=== PATIENT | female | born 1970 ===

== ENCOUNTER 2019-07-30 05:35 | Inpatient (IN) | payer MEDICARE, BC ==
[~2019-07-30 05:35] MED LIST: Tranexamic Acid 1,000 MG in NS 0.9% 50 ML* (outpatient use) IV SCH
--- OUTSIDE RECORDS SUMMARY | 2019-07-30 05:40 | XMS REPORT | Continuity of Care Document ---
:1970 External Reference #:[id number] Author Name Cassuis Dumont M.D. 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 thigh twice a day as needed Cyclobenzaprine HCL take 1 tablet up 90tabs M54.31 Cassius Dumont, 2018 10mg to three times a M.D. Tablets day as needed Synthroid 1 by mouth every Unknown 200mcg Tablets day Synthroid 2 by mouth every Unknown 25mcg Tablets day Losartan Potassium 1 by mouth every Unknown 100mg day Tablets Nexium 24HR 2 by mouth every Unknown 20mg Tablets day otc DR Burks 1 by mouth every Unknown 10mg Tablets day Eva-D 24 Hour as needed Unknown Allergy & Congestion 180-240mg Tablets ER 24HR Ambien 1/2 to 1 tab at Unknown 10mg Tablets bedtime as needed Ventolin HFA 1 to 2 inhalations Unknown 108(90Base) every 4 hours as mcg/Act Aerosol needed Immunizations Description No Information Available Vital Signs Date Vital Result Comment 07/10/2019 9:13am Height 66 inches 5'6" Weight 220.00 lb Heart Rate 91 /min BP Systolic Sitting 132 mmHg BP Diastolic Sitting 94 mmHg Body Temperature 97.2 F BMI (Body Mass Index) 35.5 kg/m2 05/18/2019 11:02am Height 66 inches 5'6" Weight 243.12 lb Heart Rate 92 /min BP Systolic Sitting 146 mmHg BP Diastolic Sitting 88 mmHg Body Temperature 97.2 F BMI (Body Mass Index) 39.2 kg/m2 Results Description No Information Available Procedures Description No Information Available Medical Devices Description No Information Available Encounters Type Date Location Provider Dx Diagnosis Office Visit 05/18/2019 [facility] Robert Luke76.31 Iliotibial band 11:00a at [facility] syndrome, right leg M16.51 Unilateral post-traumatic osteoarthritis, right hip Office Visit 04/06/2019 10:30a [facility] Cassius Dumont M25.551 Pain in at [facility] right hip M76.31 Iliotibial band syndrome, right leg M54.31 Sciatica, right side Assessments Date Code Description Provider 07/10/2019 M16.51 Unilateral post-traumatic osteoarthritis, Cassius Dumont M.D. right hip 05/18/2019 M76.31 Iliotibial band syndrome, right leg Cassius Dumont M.D. 05/18/2019 M16.51 Unilateral post-traumatic osteoarthritis, Cassius Dumont M.D. right hip 04/06/2019 M25.551 Pain in right hip Cassius Dumont M.D. 04/06/2019 M76.31 Iliotibial band syndrome, right leg Cassius Dumont M.D. 04/06/2019 M54.31 Sciatica, right side Cassius Dumont M.D. Plan of Treatment 07/10/2019 - Cassius Dumont M.D.M16.51 Unilateral post-traumatic osteoarthritis , right hipFollow up:4 weeks after surgery Functional Status Description No Information Available Mental Status Description No Information Available Referrals Refer to Reason for Referral Status Appt Date Eileen Sandoval MD h/o neck and back pain, had been treated Created in [facility] with epidural injections as MRIs there showed foraminal stenosis of the lumbar spine. Last injections were cervical in December and again become more symptomatic with decreasing quality of life [address] [facility], [place] [address] [phone]
[2019-07-30] MEDS ORDERED: Lactated Ringers 1000 ML Bag* 1,000 ML IV SCH (06:00)
[2019-07-30] MEDS ORDERED: ceFAZolin 2 GM PREMIX in ORs 2 GM/50 ML BAG ONE (06:31)
[2019-07-30] MEDS: Buffered Lidocaine 1% SYRIN* 1 ML/SYRINGE INTRADERM ONE ×2 (06:48→07:08)
[2019-07-30] MEDS ORDERED: Midazolam* 1 MG/ML 2 ML VIAL (2 MG) ONE (07:12)
[2019-07-30] MEDS ORDERED: Lidocaine 2% PF * 5 ML VIAL ONE ×2 (07:12→10:52)
[2019-07-30] MEDS ORDERED: Propofol* 10 MG/ML 20 ML BTL ONE (07:12)
[2019-07-30] MEDS ORDERED: Rocuronium* 10 MG/ML VIAL ONE ×2 (07:13→12:43)
[2019-07-30] MEDS ORDERED: Dexmedetomidine* 200 MCG/2 ML 2 ML VIAL ONE (07:13)
[2019-07-30] MEDS ORDERED: ROPIVACAINE 5 MG/ML 30 ML BTL (0.5%) ONE (07:13)
[2019-07-30] MEDS ORDERED: fentaNYL* 50 MCG/ML 2 ML VIAL (100 MCG VIAL) ONE (07:45)
[2019-07-30] MEDS ORDERED: Dexamethasone IV* 4 MG/ML 1 ML (4 MG) ONE (07:55)
[2019-07-30] MEDS ORDERED: DiMENhydriNATE IV* 50 MG/ML VIAL IV PUSH PRN (08:56)
[2019-07-30] MEDS ORDERED: Naloxone* 0.4 MG/ML 1 ML VIAL IV PRN (08:56)
[2019-07-30] MEDS ORDERED: Sugammadex * 200 MG/2 ML VIAL IV PUSH ONE (10:42)
[2019-07-30] MEDS ORDERED: Phenylephrine 40 MCG/ML SYRINGE ONE (10:49)
[2019-07-30] MEDS ORDERED: HYDROmorphone INJ1* 1 MG/ML SYRINGE ONE ×2 (11:18→11:51)
[2019-07-30] MEDS ORDERED: Magnesium Hydroxide LIQ* 30 ML UDC PO PRN (11:39)
[2019-07-30] MEDS ORDERED: diPHENhydraMINE IV* 50 MG/ML 1 ml VIAL (BENADRYL) IV PRN (11:39)
[2019-07-30] MEDS ORDERED: Ondansetron INJ* 2 MG/ML VIAL IV PRN (11:39)
[2019-07-30] MEDS ORDERED: Ondansetron ODT TAB* 4 MG PO PRN (11:39)
[2019-07-30] MEDS ORDERED: traMADol TAB* 50 MG PO PRN (11:39)
[2019-07-30] MEDS ORDERED: diPHENhydraMINE PO* 25 MG PO PRN (11:39)
[2019-07-30] MEDS ORDERED: Albuterol 2.5 MG/3 ML NEB.SOL* (0.083%) INH PRN (11:43)
[2019-07-30] MEDS ORDERED: Albuterol HFA INHALER* 8 gm MDI INH PRN (11:43)
[2019-07-30] MEDS: HYDROmorphone INJ1* 1 MG/ML SYRINGE IV PRN ×3 (11:52→12:15)
[2019-07-30] MEDS ORDERED: oxyCODONE TAB* 5 MG TAB ONE ×2 (12:21→12:48)
[2019-07-30] MEDS: oxyCODONE TAB* 5 MG TAB PO PRN ×4 (12:22→21:04)
[2019-07-30] MEDS ORDERED: Ketorolac INJ* 30 MG/ML 1 ML VIAL ONE (12:43)
[2019-07-30] MEDS ORDERED: Metoclopramide IV* 5 MG/ML 2 ML VIAL ONE (12:43)
[2019-07-30] MEDS ORDERED: Acetaminophen IV 1GM/100ML * 100 ML ONE (12:43)
[2019-07-30] MEDS ORDERED: Ondansetron INJ* 2 MG/ML VIAL ONE (12:43)
[2019-07-30] MEDS: Cyclobenzaprine TAB* 10 MG PO PRN ×2 (13:13→21:04)
--- NOTE | 2019-07-30 14:09 | CONS ---
CC: Dr. Arauz; Dr. Dumont * CONSULTATION REPORT: DATE OF CONSULT: 07/30/19 PRIMARY CARE PROVIDER: Dr. Arauz. REASON FOR CONSULT: Hypertension and management of the patient's postoperative right hip replacement. CHIEF COMPLAINT: Right hip pain. HISTORY OF PRESENT ILLNESS: Carlie Vanegas is a 49-year-old female with a history of hypertension and thyroid cancer, status post thyroidectomy, status post elective right hip surgery today by Dr. Dumont. Postoperatively, the patient is seen in the postoperative unit. She is complaining of severe right hip pain. She is right now receiving intravenous Dilaudid for it. Otherwise, she has no complaints. The patient stated that she has a history of obstructive sleep apnea and she had been using CPAP at home. Medicine consult was requested for the reason of co-management of the patient's hypertension postoperatively. PAST MEDICAL HISTORY: 1. History of thyroid cancer, status post thyroidectomy and subsequent hypothyroidism. 2. Hypertension. 3. History of obstructive sleep apnea, on CPAP. PAST SURGICAL HISTORY: 1. Status post appendectomy. 2. History of . MEDICATIONS AT HOME: Include: 1. Ambien 10 mg at bedtime. 2. Singulair 10 mg daily. 3. Rhinocort 1 inhalation b.i.d. p.r.n. 4. Pulmicort inhaler 2 puffs inhalation b.i.d. 5. Losartan 100 mg daily. 6. Levothyroxine 250 mcg daily. 7. Eva 180 mg b.i.d. 8. Nexium 40 mg daily. 9. Albuterol inhaler on a p.r.n. basis. 10. Albuterol nebulizer on a p.r.n. basis. ALLERGIES: No known drug allergies. FAMILY HISTORY: Father is healthy. Mother with a history of renal failure. SOCIAL HISTORY: The patient quit smoking over 30 years ago. The patient denies any alcohol or drug use. She lives with her who is her surrogate. REVIEW OF SYSTEMS: Please see history of present illness. All the remaining 12 systems were reviewed with the patient and were otherwise negative. PHYSICAL EXAM: Blood pressure of 125/73, heart rate of 70 and regular, respiratory rate 13, oxygen saturation 100% on 2 L of oxygen via nasal cannula, temperature of 98.1. General: The patient is a very pleasant 49-year-old obese female, who is in no acute distress. The patient is alert and oriented x3. HEENT: Head: Atraumatic, normocephalic. Eyes: Pupils are equal, reactive to light and accommodation. Oropharynx is clear. Mucosa moist. Neck : Supple. No JVD. No bruits bilaterally. Cardiovascular: Regular rate and rhythm. No murmur. Respiratory: Clear to auscultation bilaterally. Abdomen: Soft, nontender. Bowel sounds are present in all 4 quadrants. Extremities: There is no edema. Pulses are +2 bilaterally. No clubbing or cyanosis. The right hip incision is covered with postoperative dressings that were not removed for evaluation. LABORATORY DATA: Current laboratory data: None. ASSESSMENT AND PLAN: 1. In regards to postoperative management of the patient's right total hip replacement that is as per Dr. Dumont. The patient was already started on apixaban twice a day for DVT prophylaxis for postoperative hip. 2. For the patient's hypothyroidism, her levothyroxine is going to be continued at home dose. 3. For the patient's hypertension, her losartan is going to be continued. 4. For DVT prophylaxis, Eliquis as above. 5. The patient's code status is full. Her surrogate is her . TIME SPENT: Approximately 55 minutes was spent on consultation of this patient , more than half that time was spent [id number] with the patient during the interview and physical exam. Thank you very much for allowing our service to see the patient in consultation. We will see the patient on a p.r.n. basis and sign off for now. [id number]/[facility] #: [id number] RUBIN
[2019-07-30] MEDS: D5W 1/2 NS 1000 ML BAG* 1,000 ML IV SCH (14:30)
[2019-07-30] MEDS: ceFAZolin 1 GM ADVAN(*) 1 GM in NS 0.9% 50 ML* 50 ML IVPB SCH (15:42)
[2019-07-30] MEDS: Morphine INJ* 2 MG/ML 1 ML SYRINGE (TWO MG - NEW SYRINGE VERSION) IV PRN ×2 (16:30→21:14)
[2019-07-30] MEDS ORDERED: Mometasone 220 MCG MDI INH SCH ×2 (18:00→21:00)
[2019-07-30] MEDS ORDERED: Zolpidem TAB* 10 MG PO SCH (21:00)
[2019-07-30] MEDS ORDERED: Sulfamethox/Trimethoprim DS 800/160* TAB PO SCH (21:00)
[2019-07-30] MEDS: Magnesium Hydroxide LIQ* 30 ML UDC PO SCH (21:03)
[2019-07-30] MEDS: Docusate CAP* 100 MG PO SCH (21:03)
--- NOTE | 2019-07-30 21:28 | OP ---
DATE OF OPERATION: 07/30/19 - ROOM #341 DATE OF : 68 ATTENDING SURGEON: Cassius Dumont MD LYE PEEL OPERATOR: Jamie Lazo RPA ANESTHESIA: General and regional. PRE-OP DIAGNOSIS: Osteoarthritis, right hip. POST-OP DIAGNOSES: 1. Osteoarthritis, right hip. 2. Right proximal femur fracture. OPERATIVE PROCEDURES: 1. Right total hip arthroplasty. 2. Open reduction internal fixation, proximal femur. INDICATIONS: Ms. Vanegas is a 49-year-old female who has has more and more troubles with right hip pain. She had been diagnosed years ago with a labral tear and has had continued troubles with hip pain. It always had been more bearable, but more recently has gotten worse and I discussed with her different treatment options, specifically that a hip arthroscopy was something that would be an option. She having told down in the city that she would eventually need a hip replacement and she reports she would rather have just the hip replacement done and move on rather than have one surgery and then in several years have a second surgery. Risks of surgery such as infection, scar formation , stiffness, DVT, pulmonary embolism, leg length discrepancy, and instability were some of the risks discussed. She had been declared medically optimized and wished to proceed. ESTIMATED BLOOD LOSS: 75 cc. COMPLICATIONS: Proximal femur fracture. HARDWARE: Carlo ML taper #4 standard with reduced neck, plus 0, 32 mm ceramic head, 48 mm Continuum cup with elevated liner, 1 proximal cable. DESCRIPTION OF PROCEDURE: The patient had a block placed in the holding area and was brought back to the OR. General endotracheal anesthesia was established. Weller catheter was placed. She was then rolled into left lateral decubitus position and an axillary roll was placed and the pegs were all padded using the gel pads. Right hip area was prepped and then draped. An incision was made centered at about the greater trochanter initially, extended proximally and distally for about 10 cm. Proximally, I needed to extend her, because she was quite deep because of her subcutaneous fat. Incision was carried down through the skin and subcutaneous fat. Small bleeders encountered were ligated using electrocautery. Eventually, fascia was exposed and sharply incised. Trochanteric fascia was taken down using electrocautery and short external rotators were nicely exposed. Using electrocautery, these were taken down. Hohmann retractor was placed under the gluteus medius and gluteus minimus and nice exposure was obtained. T-capsulotomy was made and the hip was easily dislocated. Cutting guide was placed and I had to make sure that we had good sized neck cut as I templated her to a 7.5 with a 56-mm cup. Neck was marked and reciprocating saw was used to resect the femoral neck. Anterior C- retractor and inferior Hohmann were placed and acetabulum was exposed. Labrum was taken down sharply using a Florencio blade. From my preoperative templating, I did not went to medialize because of her anatomy, rather I wanted to come straight in and using the alignment jeanette and guide, she was progressively reamed. Her head, however, was much smaller than what I had templated for, and this was because of her subcutaneous fat adding much more magnification. She was reamed starting with a 44 and then progressively enlarged and at a 47, I had a good [id number] fit with bleeding bone. A 48-mm cup was called for and impacted into place. She had quite a solid bone and it took a quite a bit to fully impact and seat the cup. The 48 only had two screw holes and one screw hole was pointing nicely towards the posterior superior direction; but with the other one, it was just a little too anterior, so that screw hole was not used. Spectacular bite was obtained with the one screw. Trial liner was placed and attention was turned to the proximal femur. Femur was opened using a box osteotome and even the canal finder was difficult to pass. Beginning with a 4 broach, she was broached, but I could just seat her perfectly with it and this was smaller than the size 7.5/9 that I had templated her for. Fuad was then fully seated and initially I had templated to use the extended offset with a reduced neck, but considering everything was smaller, I went with the standard offset with the reduced neck. With the 0 head , she seemed just a little bit long and that was changed for the -3.5. She sat well with the minus head. She had good stability, limited more by her body habitus. The trial instrumentation was removed and it was copiously pulse lavaged. Elevated liner was impacted into place. The trial stem was replaced and then an x-ray was gotten. I have been concerned just because she was so much smaller than what I had templated for, to make sure that I had good fill proximally. It could be seen that I could further seat the stem, but I would not be able to to upsize to a 5 even with trying to seat the stem further down. [place] was removed and approximately 3 mm were taken from the neck, so that I could use a 0 head. The 4 was again broached, but just a little bit further down. She was trialed and had good stability. Trial instrumentation was removed and stem was then impacted into place. It did not fully seat, but unfortunately I had not seen that the leg was not up at 90 degrees as it should always be and instead it was sitting at 45 degrees, so as I was impacting in, I had kept my 20 degrees rotation thinking the leg was 90 degrees and so the stem was partially impacted in retroversion. Once I saw that the leg was not straight up, I brought the leg up and it could be seen how the angle of the stem was not in a good position. Extractors were called for and universal extractor was used to back the stem out. She was again broached to make sure I had the correct broaching and that seemed to sit quite nicely. The 4 stem had a little bit of abrasion on the head, so instead of a metal head, the ceramic head was called for, so that there would be less fretting. There was no other size 4 stem available. Stem was then impacted into place, but when she was fully seated, a crack started to develop from the back side of the cortex at the interface between the cortex and the greater trochanter. Cable system was called for and a cable was passed, clamping everything together. This was tightened to 100 pounds of pressure and the screw was tightened. Head was then impacted into place and hip was copiously pulse lavaged. Posterior capsule and short external rotators were repaired together to the posterior aspect of the greater trochanter. Fascia was repaired using interrupted #1 Vicryl sutures. Subcutaneous tissues were approximated in 3 layers and the skin was closed using nylon as per her request. Sterile dressing and abduction pillow were applied in the OR. The patient was then extubated in the OR and was stable on transfer to the recovery room. [id number]/[facility] #: [id number] [facility] HOSPITALBrenda
[2019-07-30] MEDS: Acetaminophen TAB* 325 MG PO SCH (22:49)
[2019-07-31] MEDS: ceFAZolin 1 GM ADVAN(*) 1 GM in NS 0.9% 50 ML* 50 ML IVPB SCH ×2 (00:03→09:10)
[2019-07-31] MEDS: D5W 1/2 NS 1000 ML BAG* 1,000 ML IV SCH (00:26)
[2019-07-31 05:19] LABS: Hematocrit 30 % (35-47); Mean Platelet Volume 9.1 fL (7.4-10.4); Platelet Count 239 10^3/uL (150-450)
[2019-07-31 05:36] LABS: BUN/Creatinine Ratio 16.9 (8-20); Calcium 8.3 mg/dL (8.6-10.3); EGFR African American 105.4 (>60); EGFR Non-African American 87.1 (>60); Potassium 4.2 mmol/L (3.5-5.0)
[2019-07-31] MEDS: oxyCODONE TAB* 5 MG TAB PO PRN ×3 (05:39→14:51)
[2019-07-31] MEDS: Acetaminophen TAB* 325 MG PO SCH ×2 (05:40→14:50)
[2019-07-31] MEDS ORDERED: Levothyroxine TAB* 125 MCG TAB PO SCH (06:00)
[2019-07-31] MEDS ORDERED: Vitamin THERAPEUTIC TAB PO SCH (09:00)
[2019-07-31] MEDS ORDERED: Cetirizine* 10 MG TAB PO SCH (09:00)
[2019-07-31] MEDS ORDERED: Losartan TAB* 25 MG PO SCH (09:00)
[2019-07-31] MEDS ORDERED: Apixaban* 2.5 MG TAB PO SCH (09:00)
[2019-07-31] MEDS ORDERED: Fluticasone NASAL SPRAY 50MCG* 16 gm SPRAY BTL BOTH NARES PRN (09:00)
[2019-07-31] MEDS ORDERED: Montelukast Sodium TAB* 10 MG PO SCH (09:00)
[2019-07-31] MEDS ORDERED: Pantoprazole TAB * 40 MG TAB PO SCH (09:00)
[2019-07-31] MEDS: Docusate CAP* 100 MG PO SCH (09:11)
[2019-07-31] MEDS: Magnesium Hydroxide LIQ* 30 ML UDC PO SCH (09:14)
--- NOTE | 2019-07-31 11:11 | PN ---
Progress Note - Progress Note Date of Service: 07/31/19 SOAP: Subjective: []Pt seen and examined at bedside. She feels well and desires DC home. Denies CP , SOB, dizziness, nausea. Hip pain is well controlled. Objective: []Gen: NAD RLE: Right hip dressing changed, incision is CDI. Thigh soft, DF/PF intact, DP2+ , sensation intact to light touch distally, still with some decreased sensation of thigh and lower leg Calves supple and nontender without erythema, edema or palpable cords Assessment: []POD 1 sp RTH proximal femur fracture intraop, ORIF w 1 cable Plan: []TTWB RLE posterior hip precautions eliquis 2.5 mg po bid x 30 days post op Vital Signs Temp 98.6 F 07/31/19 07:52 Pulse 91 07/31/19 07:52 Resp 18 07/31/19 09:13 BP 105/52 07/31/19 07:52 Pulse Ox 100 07/31/19 08:00 Intake & Output 07/30/19 07/31/19 07/31/19 18:59 06:59 18:59 Intake Total 1395 Output Total 200 2100 1000 Balance -200 -705 -1000 Intake: IV Fluids 980 D5W 1/2 NS 980 IVPB 55 ABX - CEFAZOLIN 55 Oral 360 Output: Urine 1000 Weller 200 2100 Other: # Bowel Movements 0 Laboratory Last Values Hgb 10.0 g/dL (12.0-16.0) L 07/31/19 04:49 Hct 30 % (35-47) L 07/31/19 04:49 Plt Count 239 10^3/uL (150-450) 07/31/19 04:49 MPV 9.1 fL (7.4-10.4) 07/31/19 04:49 Sodium 135 mmol/L (135-145) 07/31/19 04:49 Potassium 4.2 mmol/L (3.5-5.0) 07/31/19 04:49 Chloride 102 mmol/L (101-111) 07/31/19 04:49 Carbon Dioxide 27 mmol/L (22-32) 07/31/19 04:49 Anion Gap 6 mmol/L (2-11) 07/31/19 04:49 BUN 12 mg/dL (6-24) 07/31/19 04:49 Creatinine 0.71 mg/dL (0.51-0.95) 07/31/19 04:49 Est GFR ( Amer) 105.4 (>60) 07/31/19 04:49 Est GFR (Non-Af Amer) 87.1 (>60) 07/31/19 04:49 BUN/Creatinine Ratio 16.9 (8-20) 07/31/19 04:49 Glucose 147 mg/dL (70-100) H 07/31/19 04:49 Calcium 8.3 mg/dL (8.6-10.3) L 07/31/19 04:49
[2019-07-31 11:22] VITALS: BP 131/63
--- NOTE | 2019-07-31 13:39 | DS ---
Orthopedic Discharge Summary - Discharge Summary Date of Admission:07/30/19 Date of Discharge: 07/31/19 Date of Surgery: 07/30/19 Attending Orthopedic Provider: Dr Dumont Pre-operative Diagnosis: Right hip osteoarthritis Operative Procedure: right total hip replacement, ORIF right proximal femur fracture Disposition of Patient: home with home PT but no nursing services Condition of Patient: stable History: THANH BARONE is a 49 year old F with years of increasingly severe right hip pain. Patient has failed conservative management and has elected to undergo a right total hip replacement Hospital Course: THANH was admitted to [facility] on 07/30/19. Patient underwent a right total hip replacement without complication followed by a brief recovery in PACU and transfer to the Short Stay Surgical Unit in stable condition. Our hospitalist service, physical therapy and occupational therapy also participated in this patients care. Post-op day 1: patient was alert and in no acute distress. Dressing was clean, dry and intact. Operative extremity dorsiflexion and plantarflexion intact, sensation intact to light touch distally though with decreased sensation of anterior thigh and alan, which rechecked later in the day had tingling sensation returning lower leg, DP2 +. Dressing was changed prior to dc, incision CDI. Physical therapy goals were met. Home Medications Medication Instructions Recorded Confirmed Type Albuterol 2.5MG/3ML (0.083%)* 2.5 mg INH Q6H PRN 07/24/19 07/24/19 History [Ventolin 2.5 MG/3 ML NEB.DIAZ*] Albuterol HFA INHALER* [Ventolin 1 - 2 puff INH Q4H PRN 07/24/19 07/24/19 History HFA Inhaler*] Budesonide Flexhaler 180 (NF) 2 puff IN BID 07/24/19 07/30/19 History [Pulmicort Flexhaler 180 mcg/act (NF)] Budesonide NASAL (NF) [Rhinocort 32 mcg NA BID PRN 07/24/19 07/30/19 History Aqua (NF)] Esomeprazole(NF) [Nexium(NF)] 40 mg PO QAM 07/24/19 07/30/19 History Fexofenadine (NF) [Eva 180 180 mg PO BID 07/24/19 07/30/19 History (NF)] Levothyroxine Sodium [Synthroid] 250 mcg PO QAM 07/24/19 07/30/19 History Losartan Potassium 100 mg PO QAM 07/24/19 07/30/19 History Montelukast Sodium TAB* [Singulair 10 mg PO QAM 07/24/19 07/30/19 History 10 MG TAB*] Steroid Injection Monthly 1 applic INJ MONTHLY 07/24/19 07/30/19 History Zolpidem TAB* [Ambien*] 10 mg PO BEDTIME 07/24/19 07/30/19 History Flexeril 10 MG TAB* 10 mg PO 07/30/19 History Sulfamethox/Trimethoprim DS* 07/30/19 History Acetaminophen TAB* [Tylenol TAB*] 975 mg PO Q8HR tab 07/31/19 Rx Apixaban* [Eliquis*] 2.5 mg PO Q12H #60 tab 07/31/19 Rx Docusate Sodium [Colace] 100 mg PO Q12HR PRN #60 capsule 07/31/19 Rx Oxycodone HCl 10 mg PO Q4HR PRN #50 tablet MDD 10 07/31/19 Rx Discharge Instructions following Orthopedic Surgery: Activity: * Weight Bearing: toe touch weight bearing right lower extremity * Continue physical therapy and occupational therapy exercises as shown * Home physical therapy Hip replacements: Continue Hip Precautions- do not cross legs or bend greater than 90 degrees/squat Wound care: * OK to shower on post-op day 3, no bathing, swimming, or submerging wound. * Use gentle soap, pat dry. Cover with gauze, PRINCESS wrap or tape. * Make an appt with Dr Dumont's office for 2 weeks post op to have sutures removed. Call Orthopedic office for: * Increased drainage * Redness * Increased pain * Fever Go to ER with shortness of breath or chest pain. Diet: * Regular diet * Increase fluids and fiber to prevent constipation. * Continue to use stool softeners, call office if no bowel motion within 48 hours. Medications See Home Medication List in your packet for medications that you should take after discharge. DVT Prophylaxis: Eliquis Dosin.5 mg, 1 tab every 12 hours x 30 days. Hold for sedation and wean off as soon as pain allows Pain Control: oxycodone 5 mg. 1 tab for moderate and 2 tabs for severe pain every 4 hours as needed. Hold for sedation and wean off as soon as pain allows Antibiotics are required prior to any dental work. FOLLOW UP: Follow up with [Julia] Within 4 weeks, call for appointment Please call our office with any questions or concerns ([phone]) RX JOSEF Edwards
[2019-07-31] MEDS: Cyclobenzaprine TAB* 10 MG PO PRN (14:50)
[2019-08-01] MEDS ORDERED: Losartan TAB* 25 MG PO SCH (09:00)
== END 2019-07-31 15:40 | disposition home health service (06) | DRG 470 ==
LOC: AA 05:35 → SSU 11:39
PROVIDERS: ADMIT Orthopaedic Surgery; ATTEND Orthopaedic Surgery
PROC: 0QS604Z Reposition Right Upper Femur with Internal Fixation Device, Open Approach (ICD-10-PCS; 2019-07-30)
PROC: 0SR904A Replacement of Right Hip Joint with Ceramic on Polyethylene Synthetic Substitute, Uncemented, Open Approach (ICD-10-PCS; principal; 2019-07-30 07:30)
DX: M16.11 Unilateral primary osteoarthritis, right hip (principal); M84.651A Pathological fracture in other disease, right femur, initial encounter for fracture; I10 Essential (primary) hypertension; E89.0 Postprocedural hypothyroidism; G47.33 Obstructive sleep apnea (adult) (pediatric); Z79.51 Long term (current) use of inhaled steroids; Z79.01 Long term (current) use of anticoagulants; Z79.890 Hormone replacement therapy; Z87.891 Personal history of nicotine dependence; Z91.048 Other nonmedicinal substance allergy status; Z85.850 Personal history of malignant neoplasm of thyroid; Z99.89 Dependence on other enabling machines and devices
CPT/HCPCS: 36415; 72170; 80048; 85014; 85018; 85049; 88304; 88311; A9270-GY; C1713; C1776; J0690; J1100; J1170; J1885; J2250; J2270; J2405; J2704; J2765; J2795; J3010